=== PATIENT | male | born 1980 | race Caucasian/White ===

== ENCOUNTER 2020-03-18 20:24 | Inpatient (IN) | payer MEDICARE ==
[~2020-03-18] VITALS: Ht 200.7 cm; Wt 226.8 kg
[2020-03-18 21:54] LABS: BASOPHILS 0.3 % (0-2); EOSINOPHILS 0.7 % (0-7); HEMOGLOBIN 13.1 g/dL (13.5-17.5); IMMATURE GRANULOCYTES 0.3 % (0-5); MCH 31.3 pg (26.0-34.0); MCHC 29.8 g/dL (31.0-37.0); MEAN PLATELET VOLUME 9.9 fL (7.4-10.4); MONOCYTES 6.6 % (2-11); NEUTROPHILS 78.1 % (40-80); PLATELET COUNT 256 10x3/uL (130-400); RBC 4.19 10x6/uL (4.20-6.10); RDW 19.6 % (11.5-14.5); WBC 11.2 10x3/uL (4.8-10.8)
[2020-03-18 22:03] LABS: ANION GAP 12.2 mmol/L (8-16); CALCIUM 8.9 mg/dL (8.5-10.1); CARBON DIOXIDE 30.4 mmol/L (21.0-32.0); CREATININE - SERUM 1.2 mg/dL (0.6-1.3); POTASSIUM - SERUM 3.6 mmol/L (3.5-5.1)
[2020-03-18 22:15] VITALS: BP 141/78
[2020-03-18 22:16] LABS: ALBUMIN 3.2 g/dL (3.4-5.0); BILIRUBIN - TOTAL 0.82 mg/dL (0.2-1.3)
--- NOTE | 2020-03-18 23:30 | NUR ---
URINE OUTPUT: (ORIGINAL OUTPUT WITH INSERTION 750ML, CLEAR CHRISTIN) URINE OUTPUT (AFTER LASIX): 1725ML, CLEAR, PALE YELLOW
[2020-03-19 00:30] VITALS: BP 137/69
--- NOTE | 2020-03-19 00:50 | NUR ---
URINE OUTPUT VIA SANDOVAL: 1700ML CLEAR, VERY PALE
--- NOTE | 2020-03-19 02:00 | NUR ---
1500 ML OF PALE YELLOW URINE DRAINED FROM SANDOVAL BAG AT THIS TIME.
[2020-03-19] MEDS ORDERED: HYDROCODON-ACE1 EA10 PO (02:28)
[2020-03-19] MEDS ORDERED: XANAX XR2 MG PO (02:29)
[2020-03-19] MEDS ORDERED: METOPROLOL TART50 MG PO (02:31)
[2020-03-19 02:32] VITALS: BP 113/65; BMI 56.4
--- NOTE | 2020-03-19 04:02 | NUR ---
ASSESSED AT THE TIME OF ADMIT. PT IS ALERT AND ORIENTED, ABLE TO VERBALIZE NEEDS. IS AT THE BEDSIDE. MADE COMFORTABLE WITH SPECIAL BED DUE TO PT'S SIZE. ALL PAPER WORK DONE AND THEN PT REQUESTED PAIN MEDS WHICH WERE GIVEN ORDERED. BOTH FEET AND LOWER LEGS ARE RED AND SWOLLEN. HE HAS A SANDOVAL CATH.
--- NOTE | 2020-03-19 08:00 | NUR ---
RESTING IN BED, NO DISTRESS NOTED, FAMILY IN ROOM, SANDOVAL TO GRAVITY, SL IN PLACE, MONITOR LEGS, AND TELE
[2020-03-19 10:26] VITALS: BP 116/54
[2020-03-19 11:00] VITALS: BP 111/60
--- NOTE | 2020-03-19 12:06 | NUR ---
MEDICATED FOR BACK PAIN AND C/O INDIGESTION, CONT TO MONITOR
[2020-03-19 17:35] VITALS: BP 121/68
[2020-03-19 22:21] VITALS: BP 124/65
[2020-03-20 01:07] VITALS: BP 141/83
[2020-03-20 06:14] LABS: BASOPHILS 0.3 % (0-2); EOSINOPHILS 1.7 % (0-7); HEMOGLOBIN 12.9 g/dL (13.5-17.5); IMMATURE GRANULOCYTES 0.3 % (0-5); LYMPHOCYTES 16.7 % (15-50); MCH 31.2 pg (26.0-34.0); MCHC 29.3 g/dL (31.0-37.0); MCV 106.5 fL (80.0-100.0); MONOCYTES 8.7 % (2-11); NEUTROPHILS 72.3 % (40-80); PLATELET COUNT 302 10x3/uL (130-400); RBC 4.13 10x6/uL (4.20-6.10); RDW 19.7 % (11.5-14.5); WBC 10.3 10x3/uL (4.8-10.8)
[2020-03-20 06:49] VITALS: BP 119/52
[2020-03-20 07:03] LABS: ANION GAP 9.2 mmol/L (8-16); CARBON DIOXIDE 36.6 mmol/L (21.0-32.0); CREATININE - SERUM 1.2 mg/dL (0.6-1.3); PHOSPHOROUS 5.3 mg/dL (2.5-4.9); POTASSIUM - SERUM 3.8 mmol/L (3.5-5.1)
[2020-03-20 09:03] VITALS: BP 123/70
--- NOTE | 2020-03-20 10:16 | NUR ---
PT ALERT X 4. BREATH SOUNDS CLEAR BILAT 6L O2 PER NC. TELEMETRY IN PLACE. IV TO RIGHT AC, SALINE LOCKED. PT REPORTING PAIN OF 6/10, MEDICATED PER ORDERS, PT INSISTS ORAL PAIN MEDS WILL NOT HELP AFTER TAKING, WILL CONTINUE TO MONITOR. AT BEDSIDE. BED LOW, CALL LIGHT IN REACH. NO OTHER NEEDS AT THIS TIME.
[2020-03-20 12:53] VITALS: BP 117/58
[2020-03-20 17:31] VITALS: BP 139/73
--- NOTE | 2020-03-20 21:30 | NUR ---
WATCHING TV QUEITLY WITH NO COMPLAITNS VOICED. CONTINUES TO HAVE EDEMA TO LOWER EXTREIITIES.SANDOVAL PATENT AND DRAINING STRAW URINE NOTED. SL TO RFA INTACT WITHOUT REDNESS OR EDEMA NOTED. CL IN REACH
[2020-03-21 03:24] VITALS: BP 109/77
--- NOTE | 2020-03-21 05:11 | NUR ---
I have reviewed this patient and I concur with the Shift Assessment completed by the Licensed Practical Nurse today this shift.
[2020-03-21 06:40] VITALS: BP 120/65
[2020-03-21 07:03] LABS: BASOPHILS 0.1 % (0-2); EOSINOPHILS 0.9 % (0-7); HEMATOCRIT 43.3 % (42.0-54.0); HEMOGLOBIN 12.5 g/dL (13.5-17.5); IMMATURE GRANULOCYTES 0.2 % (0-5); LYMPHOCYTES 8.2 % (15-50); MCH 31.2 pg (26.0-34.0); MCHC 28.9 g/dL (31.0-37.0); MEAN PLATELET VOLUME 10.1 fL (7.4-10.4); MONOCYTES 6.7 % (2-11); NEUTROPHILS 83.9 % (40-80); PLATELET COUNT 286 10x3/uL (130-400); RBC 4.01 10x6/uL (4.20-6.10); RDW 19.2 % (11.5-14.5); WBC 11.6 10x3/uL (4.8-10.8)
[2020-03-21 07:11] LABS: ANION GAP 6.2 mmol/L (8-16); CALCIUM 7.9 mg/dL (8.5-10.1); CREATININE - SERUM 1.4 mg/dL (0.6-1.3); POTASSIUM - SERUM 3.8 mmol/L (3.5-5.1)
[2020-03-21 07:26] LABS: CARBON DIOXIDE 40.6 mmol/L (21.0-32.0)
[2020-03-21 09:22] VITALS: BP 131/75
--- NOTE | 2020-03-21 10:46 | NUR ---
PT SITTING UP IN BED ADMINISTERED SCHEDULED MEDICATIONS, PT INQUIRED ON PAIN MEDICATIONS AND TOLD PT HE CAN HAVE ORAL PAIN MEDS NOW IF HE WISHES. PT STATED HE PREFERS THE IV PAIN MEDICATION IT SEEMS TO WORK BETTER. EXPLAINED PT STILL HAS ANOTHER 2 HOURS. NO NEEDS AT THIS TIME. CONTINUE WITH PLAN OF CARE
[2020-03-21 13:05] VITALS: BP 115/74
[2020-03-21 17:54] VITALS: BP 126/75
--- NOTE | 2020-03-21 18:45 | NUR ---
I have reviewed this patient and I concur with the Shift Assessment completed by the Licensed Practical Nurse today this shift.
--- NOTE | 2020-03-21 19:49 | NUR ---
alert and orented able to voice needs and wants to staff. at bedside. IV to right upper arm. folley cath in place and paten. telemctry in place. no needs stated or noted at this time.
[2020-03-21 20:00] VITALS: BP 123/74
[2020-03-22] VITALS: BP 106/55
[2020-03-22 04:00] VITALS: BP 93/41
[2020-03-22 08:55] VITALS: BP 115/59
[2020-03-22 13:19] VITALS: BP 134/55
[2020-03-22 13:28] VITALS: Ht 200.7 cm; Wt 226.8 kg
--- NOTE | 2020-03-22 15:18 | NUR ---
OT NOTE: PT COMPLETED SUPINE TO SIT WITH MIN/MOD A. PT COMPLETED SIDE ROLLING WITH MIN A. PT COMPLETE SIT TO STAND WITH MIN A. PT REQUIRED CGA FOR STANDING BALANCE. PT COMPLETED UE AROM AXS TOLERATED. [phone] THANK YOU,CINDY VERDUZCO
[2020-03-22 17:06] VITALS: BP 103/58
--- NOTE | 2020-03-22 18:45 | NUR ---
I have reviewed this patient and I concur with the Shift Assessment completed by the Licensed Practical Nurse today this shift.
--- NOTE | 2020-03-22 18:45 | NUR ---
I have reviewed this patient and I concur with the Shift Assessment completed by the Licensed Practical Nurse today this shift.
--- NOTE | 2020-03-22 19:51 | NUR ---
ALERT AND ORENTED X4 WITH AT BEDSIDE. O2 AT 6 LETERS VIA HIGH FLOW N/C. MARGOT LIU IN PLACE AND JOSELIN.ISAIAH IN PLACE. CALL LIGHT AND WATER IN REACH.
[2020-03-22 20:00] VITALS: BP 136/73
[2020-03-23] VITALS: BP 138/67
[2020-03-23 04:00] VITALS: BP 117/63
[2020-03-23 04:58] LABS: BASOPHILS 0.2 % (0-2); EOSINOPHILS 1.6 % (0-7); HEMOGLOBIN 12.5 g/dL (13.5-17.5); IMMATURE GRANULOCYTES 0.2 % (0-5); LYMPHOCYTES 10.4 % (15-50); MCH 30.6 pg (26.0-34.0); MCHC 28.4 g/dL (31.0-37.0); MCV 107.8 fL (80.0-100.0); MEAN PLATELET VOLUME 11.2 fL (7.4-10.4); MONOCYTES 8.1 % (2-11); NEUTROPHILS 79.5 % (40-80); PLATELET COUNT 268 10x3/uL (130-400); RBC 4.08 10x6/uL (4.20-6.10); RDW 18.7 % (11.5-14.5); WBC 11.6 10x3/uL (4.8-10.8)
[2020-03-23 05:14] LABS: CALCIUM 8.4 mg/dL (8.5-10.1); CHLORIDE - SERUM 96 mmol/L (98-107); GLUCOSE 107 mg/dL (74-106); POTASSIUM - SERUM 3.7 mmol/L (3.5-5.1); SODIUM 138 mmol/L (136-145)
[2020-03-23 06:06] LABS: CALC OSMOLALITY 274 mosm/kg (275-300); UREA NITROGEN 11 mg/dL (7-18); eGFR NON AFRICAN AMERICAN 89 mL/min (90-120)
[2020-03-23 06:07] LABS: CARBON DIOXIDE 41.8 mmol/L (21.0-32.0)
--- NOTE | 2020-03-23 06:34 | NUR ---
CARBON BERTOXEN 41.8 CALLED TO SATELLITE PROJECT SITE MONITOR ALVIN PETTY ELECTRO MECHANICAL TECHNOLOGIST NO NEW ORDERS AT THIS TIME.
[2020-03-23 09:36] VITALS: BP 126/82
--- NOTE | 2020-03-23 16:13 | NUR ---
OT NOTE: PT SEEN BEFORE LUNCH TODAY. REPORTS THAT HE WOULD LIKE TO TRY TO GET TO BATHROOM HE FEELS LIKE HE MAY BE ABLE TO HAVE A BM ON TOILET (WAS NOT SUCCESSFUL ON BEDPAN)..ASSISTED PT WITH R LE MGMT TO GET FEET OFF OF EOB. MAX ASSIST FOR SUPINE TO SIT. EOB SITTING BALANCE WAS GOOD. C/O SEVERE PAIN IN B FEET BEFORE STANDING. PEROFRMED SIT TO STAND WITH BARIATRIC WALKER AND MOD ASSIST.. PT EXPRESSING PAIN OF 8/10 IN FEET WHILE IN WT BEARING POSITION. ATTEMPTED TO TAKE A STEP FORWARD BUT PT WAS UNABLE TO DO SO BECAUSE OF PAIN. PT ENCOURAGED TO TAKE A FEW SIDE STEPS AT EOB WHICH HE WAS ABLE TO PERFORM. BACK TO BED WITH MAX ASSIST FOR SIT TO SUPINE. POSITIONED B LES IN ELEVATED POSITION WITH USE OF BED AND MULT PILLOWS/BLANKETS.. PT TOLERATED FOR APPROX 1.5 HRS BEFORE BECOMING UNCOMFORTABLE. EDUCATED PT ON ANKLE PUMPS AND KNEE FLEX/EXT EXS WHILE IN BED TO ASSIST WITH EDEMA VIRGEN SHABAZZ, OTR/L [phone]
--- NOTE | 2020-03-23 16:19 | NUR ---
OT NOTE: PT REQUIRED TOTAL A WITH LE POSITIONING TO DECREASE RISK OF SKIN BREAKDOWN AND DECREASE EDEMA. PT REQUIRED MAX A WITH BED MOB TASKS. PT STATED HIS LE ARE PAINFUL. PT COMPLETED BUE AROM WITH FUNCTIONAL BED MOB TASKS. [phone] THANK YOU,CINDY VERDUZCO
--- NOTE | 2020-03-23 18:01 | NUR ---
I have reviewed this patient and I concur with the Shift Assessment completed by the Licensed Practical Nurse today this shift.
[2020-03-23 18:21] VITALS: BP 116/72
[2020-03-23 20:00] VITALS: BP 127/62
[2020-03-24] VITALS (7 sets, daily range): BP systolic 104–150; BP diastolic 54–80
[2020-03-24 06:27] LABS: BASOPHILS 0.5 % (0-2); HEMATOCRIT 42.4 % (42.0-54.0); HEMOGLOBIN 12.1 g/dL (13.5-17.5); IMMATURE GRANULOCYTES 0.2 % (0-5); LYMPHOCYTES 11.2 % (15-50); MCH 30.5 pg (26.0-34.0); MCHC 28.5 g/dL (31.0-37.0); MCV 106.8 fL (80.0-100.0); MEAN PLATELET VOLUME 10.2 fL (7.4-10.4); NEUTROPHILS 77.1 % (40-80); PLATELET COUNT 267 10x3/uL (130-400); RBC 3.97 10x6/uL (4.20-6.10); RDW 18.6 % (11.5-14.5); WBC 9.3 10x3/uL (4.8-10.8)
[2020-03-24 06:46] LABS: CALC OSMOLALITY 278 mosm/kg (275-300); CALCIUM 8.5 mg/dL (8.5-10.1); CHLORIDE - SERUM 98 mmol/L (98-107); GLUCOSE 115 mg/dL (74-106); POTASSIUM - SERUM 3.7 mmol/L (3.5-5.1); SODIUM 139 mmol/L (136-145); UREA NITROGEN 13 mg/dL (7-18); eGFR NON AFRICAN AMERICAN 89 mL/min (90-120)
[2020-03-24 07:13] LABS: CARBON DIOXIDE 43.7 mmol/L (21.0-32.0)
--- NOTE | 2020-03-24 10:52 | NUR ---
I have reviewed this patient and I concur with the Shift Assessment completed by the Licensed Practical Nurse today this shift.
--- NOTE | 2020-03-24 11:43 | MORECARE ---
CASE MANAGEMENT DISCHARGE SUMMARY PATIENT: VALENCIA BENNETT UNIT: [id number] ADM DATE: 03/19/20 AGE: 39 : 82 SEX: M ROOM/BED: D.2204 AUTHOR: JHONY MARK PHYSICIAN: REFERRING PHYSICIAN: EMILY ANDREW MD DATE OF SERVICE: 03/24/20 Discharge Plan Patient Name: VALENCIA BENNETT Facility: [facility]:[place] : 1980 Planned Disposition: Home Anticipated Discharge Date: Discharge Date: Expected LOS: Initial Reviewer: [email or web address] Initial Review Date: 03/19/2020 Generated: 03/24/20 12:43 pm Patient Name: VALENCIA BENNETT Page [phone] at 1143 All edits/amendments must be made on the electronic document DICTATION DATE: 03/24/20 1143 FORMATION FRACTURING OPERATOR: CHRIS 03/24/20 1143 RPT#: [id number] DC DATE: STATUS: ADM IN [facility] [address] [place] [address] END OF REPORT
--- NOTE | 2020-03-24 11:52 | MORECARE ---
CASE MANAGEMENT DISCHARGE SUMMARY PATIENT: VALENCIA BENNETT UNIT: [id number] ADM DATE: 03/19/20 AGE: 39 : 84 SEX: M ROOM/BED: D.2204 AUTHOR: JHONY MARK PHYSICIAN: REFERRING PHYSICIAN: EMILY ANDREW MD DATE OF SERVICE: 03/24/20 Discharge Plan Patient Name: VALENCIA BENNETT [facility] [facility] 1980 Planned Disposition: Home Anticipated Discharge Date: Discharge Date: Expected LOS: Initial Reviewer: [email or web address] Initial Review Date: 03/19/2020 Generated: 03/24/20 12:52 pm DCPIA - Discharge Planning Initial Assessment Updated by [email or web address]: Nory Ellis on 03/24/20 11:47 am * Is the patient Alert and Oriented? Yes * How many steps to enter\exit or inside your home? stairs * PCP DR SHIN IN [facility] [place] WOULD LIKE TO USE [facility] * Pharmacy [address] * Preadmission Environment Home with Family * ADLs Partial Dependent * Partial ADLs (Assistance needed) Ambulation Bathing * Equipment Cane * Other Equipment WHEELCHAIR HAS BEEN ORDERED * List name and contact numbers for known caregivers / representatives who currently or will assist patient after discharge: SIGIFREDO BENNETT [phone] * Verbal permission to speak to the caregivers and representatives has been obtained from the patient. Yes * Community resources currently utilized None * Additional services required to return to the preadmission environment? Yes * Can the patient safely return to the preadmission environment? Yes * Has this patient been hospitalized within the prior 30 days at any hospital? No Last DP export: 03/24/20 10:43 a Patient Name: VALENCIA BENNETT Page 68043 at 1152 All edits/amendments must be made on the electronic document DICTATION DATE: 03/24/20 1152 AIR AND WATER TESTER: CHRIS 03/24/20 1152 RPT#: [id number] DC DATE: STATUS: ADM IN [facility] [address] [place] [address] END OF REPORT
--- NOTE | 2020-03-24 12:01 | MORECARE ---
CASE MANAGEMENT DISCHARGE SUMMARY PATIENT: VALENCIA BENNETT UNIT: [id number] ADM DATE: 03/19/20 AGE: 39 : 84 SEX: M ROOM/BED: D.2204 AUTHOR: JHONY MARK PHYSICIAN: REFERRING PHYSICIAN: EMILY ANDREW MD DATE OF SERVICE: 03/24/20 Discharge Plan Patient Name: VALENCIA BENNETT Facility: [facility]:[place] : 1980 Planned Disposition: Home Anticipated Discharge Date: Discharge Date: Expected LOS: Initial Reviewer: [email or web address] Initial Review Date: 03/19/2020 Generated: 03/24/20 1:00 pm Comments DCP- Discharge Planning Updated by [email or web address]: Nory Ellis on 03/24/20 10:[address] Patient Name: VALENCIA BENNETT Admission Status: ER Accout number: [id number] Admission Date: 03-19-2020 : 1980 Admission Diagnosis:FLUID OVERLOAD, UNSPECIFIED Attending: EMILY ANDREW Current LOS: 5 Anticipated DC Date: Planned Disposition: Home Primary Insurance: MEDICARE A & B Discharge Planning Comments: CM met with patient to complete initial dc planning assessment. CM educated patient on the CM role and verbal consent given by patient to complete assessment. Patient lives at home with his where he is moderately independent. He states that he needs help getting up then he is good to go. His is at his bedside. He see a Dr in [place] and he has ordered him a [facility] and per the patient it should be delivered soon. At discharge patient plans to return home and feels this is a safe discharge. He knows that he needs therapy and is asking about water therapy. He states his feet is killing him and the pain is a lot. He has agoraphobia so he is scared about being around crowds ( like an inpatient rehab) CM discussed availability of home health, rehab services, and medical equipment. He has a cane, but it is not helpful. His said he did much better with the walker. IMM signed and went over. DMITRIY also signed for HH vs OP water therapy. Patient denied known discharge needs at this time. CM will continue to follow and will assist as needed with dc plans/needs. Parliamentary Archivist: Nory Ellis DCPIA - Discharge Planning Initial Assessment Updated by [email or web address]: Nory Ellis on 03/24/20 11:47 am * Is the patient Alert and Oriented? Yes * How many steps to enter\exit or inside your home? stairs * PCP [facility] SHIN IN [facility] WOULD LIKE TO USE [facility] * Pharmacy [address] * Preadmission Environment Home with Family * ADLs Partial Dependent * Partial ADLs (Assistance needed) Ambulation Bathing * Equipment Cane * Other Equipment WHEELCHAIR HAS BEEN ORDERED * List name and contact numbers for known caregivers / representatives who currently or will assist patient after discharge: SIGIFREDO BENNETT [phone] * Verbal permission to speak to the caregivers and representatives has been obtained from the patient. Yes * Community resources currently utilized None * Additional services required to return to the preadmission environment? Yes * Can the patient safely return to the preadmission environment? Yes * Has this patient been hospitalized within the prior 30 days at any hospital? No Coverage Notice Reviewer: [id number] Jeremy Ellis Notice Issued Date-Time: 03/24/2020 10:35 Notice Type: IM Discharge Notice Notice Delivered To: Patient Relationship to Patient: Activity Therapy Specialist Name: Delivery Method: HAND - Hand Delivered Samaria Days: Prior Verbal Notification: Recipient Understood Notice: Yes Recipient Signature: Yes Med Rec Note Co-signed by Attending: Coverage Notice Comment: Reviewer: [email or web address] Jeremy Ellis Notice Issued Date-Time: 03/24/2020 10:35 Notice Type: Patient Choice Letter Notice Delivered To: Patient Relationship to Patient: Activity Therapy Specialist Name: Delivery Method: HAND - Hand Delivered Samaria Days: Prior Verbal Notification: Recipient Understood Notice: Yes Recipient Signature: Yes Med Rec Note Co-signed by Attending: Coverage Notice Comment: dmitriy hh vs water therapy Last DP export: 03/24/20 10:52 a Patient Name: VALENCIA BENNETT Page [phone] at 1201 All edits/amendments must be made on the electronic document DICTATION DATE: 03/24/20 1201 LINEMARKER: CHRIS 03/24/20 1201 RPT#: [id number] DC DATE: STATUS: ADM IN [facility] [address] [facility] [place] [address] END OF REPORT
--- NOTE | 2020-03-24 12:35 | NUR ---
Nutrition follow-up: Visited with pts ; pt asleep. Pts reports pt with good appetite; reports very sleepy with increased gabapentin. Labs reviewed Diet: Low sodium PO intake ~75% of meals Wt: 500# No BM charted; may need to add stool softener RDN following.
--- NOTE | 2020-03-24 14:10 | MORECARE ---
CASE MANAGEMENT DISCHARGE SUMMARY PATIENT: VALENCIA BENNETT UNIT: [id number] ADM DATE: 03/19/20 AGE: 39 : 84 SEX: M ROOM/BED: D.2204 AUTHOR: JHONY MARK PHYSICIAN: REFERRING PHYSICIAN: EMILY ANDREW MD DATE OF SERVICE: 03/24/20 Discharge Plan Patient Name: VALENCIA BENNETT Facility: [facility]:[place] : 1980 Planned Disposition: Home Anticipated Discharge Date: Discharge Date: Expected LOS: Initial Reviewer: [email or web address] Initial Review Date: 03/19/2020 Generated: 03/24/20 3:09 pm Comments DCP- Discharge Planning Updated by [email or web address]: Nory Ellis on 03/24/20 10:[address] Patient Name: VALENCIA BENNETT Admission Status: ER Accout number: [id number] Admission Date: 03-19-2020 : 1980 Admission Diagnosis:FLUID OVERLOAD, UNSPECIFIED Attending: EMILY ANDREW Current LOS: 5 Anticipated DC Date: Planned Disposition: Home Primary Insurance: MEDICARE A & B Discharge Planning Comments: CM met with patient to complete initial dc planning assessment. CM educated patient on the CM role and verbal consent given by patient to complete assessment. Patient lives at home with his where he is moderately independent. He states that he needs help getting up then he is good to go. His is at his bedside. He see a Dr in [place] and he has ordered him a wheelchair through [facility] and per the patient it should be delivered soon. At discharge patient plans to return home and feels this is a safe discharge. He knows that he needs therapy and is asking about water therapy. He states his feet is killing him and the pain is a lot. He has agoraphobia so he is scared about being around crowds ( like an inpatient rehab) CM discussed availability of home health, rehab services, and medical equipment. He has a cane, but it is not helpful. His said he did much better with the walker. IMM signed and went over. MDITRIY also signed for HH vs OP water therapy. Patient denied known discharge needs at this time. CM will continue to follow and will assist as needed with dc plans/needs. Braid Pattern Setter: Nory Ellis DCPIA - Discharge Planning Initial Assessment Updated by [email or web address]: Nory Ellis on 03/24/20 11:47 am * Is the patient Alert and Oriented? Yes * How many steps to enter\exit or inside your home? stairs * PCP [facility] SHIN IN [facility] WOULD LIKE TO USE [facility] * Pharmacy [address] * Preadmission Environment Home with Family * ADLs Partial Dependent * Partial ADLs (Assistance needed) Ambulation Bathing * Equipment Cane * Other Equipment WHEELCHAIR HAS BEEN ORDERED * List name and contact numbers for known caregivers / representatives who currently or will assist patient after discharge: SIGIFREDO BENNETT [phone] * Verbal permission to speak to the caregivers and representatives has been obtained from the patient. Yes * Community resources currently utilized None * Additional services required to return to the preadmission environment? Yes * Can the patient safely return to the preadmission environment? Yes * Has this patient been hospitalized within the prior 30 days at any hospital? No Coverage Notice Reviewer: [email or web address] Jeremy Ellis Notice Issued Date-Time: 03/24/2020 10:35 Notice Type: IM Discharge Notice Notice Delivered To: Patient Relationship to Patient: Coupon Clerk Name: Delivery Method: HAND - Hand Delivered Samaria Days: Prior Verbal Notification: Recipient Understood Notice: Yes Recipient Signature: Yes Med Rec Note Co-signed by Attending: Coverage Notice Comment: Reviewer: [email or web address] Jeremy Ellis Notice Issued Date-Time: 03/24/2020 10:35 Notice Type: Patient Choice Letter Notice Delivered To: Patient Relationship to Patient: Coupon Clerk Name: Delivery Method: HAND - Hand Delivered Samaria Days: Prior Verbal Notification: Recipient Understood Notice: Yes Recipient Signature: Yes Med Rec Note Co-signed by Attending: Coverage Notice Comment: dmitriy hh vs water therapy Last DP export: 03/24/20 11:01 a Patient Name: VALENCIA BENNETT Page [id number] at 1410 All edits/amendments must be made on the electronic document DICTATION DATE: 03/24/201408 YOKE PRESSER: CHRIS 03/24/20 140 RPT#: [id number] DC DATE: STATUS: ADM IN [facility] [address] [place] [address] END OF REPORT
--- NOTE | 2020-03-24 16:50 | NUR ---
OT NOTE: PT COMPLETED SUPINE TO SIT WITH MAX A. PT COMPLETED SIT TO STAND WITH MAX A. PT COMPLETED ADL MOB WITH RW REQUIRED CGA. PT COMPLETED TOILETING WITH SBA. PT REQUIRED TOTAL A WITH TOILETING HYGIENE TASKS. PT REQUIRED TOTAL A WITH POSITIONING IN BED TO DECREASE LE EDEMA. [phone] THANK YOU,CINDY VERDUZCO
[2020-03-25 04:00] VITALS: BP 126/71
--- NOTE | 2020-03-25 07:15 | NUR ---
REC'D IN BED AWAKE AND ALERT. RESP EVEN AND UNLABORED WITH NO DISTRESS NOTED. CAN EXPRESS NEED AND WANTS. NO C/O NOTED OR VOICED. ASSESSMENT COMPLETED. C/L AND AT BEDSIDE.
[2020-03-25 09:07] VITALS: BP 138/60
[2020-03-25] MEDS ORDERED: NEURONTIN 300300 MG PO (10:24)
[2020-03-25] MEDS ORDERED: LASIX40 MG PO (10:27)
--- NOTE | 2020-03-25 10:49 | NUR ---
WAS MEDICATED WITH [facility] AT THIS TIME FOR C/O GENERALIZED PAIN. C/L IN REACH AT BEDSIDE.
--- NOTE | 2020-03-25 11:57 | NUR ---
PT AND FRIEND IN ROOM. CONCERNED ABOUT GOING HOME TODAY. SPOKE WITH Aman JOHNSTON LPN AND RODO NOBLES CASEMANAGER ABOUT THIS. STATES ANXIETY REASON FOR STAYING AND THAT HE SHOULD HAVE BEEN TOLD YESTERDAY THAT IT WAS A POSSIBILITY THAT HE WAS GOING HOME TODAY. CL IN REACH. WCTM
[2020-03-25 12:31] VITALS: BP 116/52
--- NOTE | 2020-03-25 12:59 | MORECARE ---
CASE MANAGEMENT DISCHARGE SUMMARY PATIENT: VALENCIA BENNETT UNIT: [id number] ADM DATE: 03/19/20 AGE: 39 : 84 SEX: M ROOM/BED: D.2204 AUTHOR: DEEDEEDOC PHYSICIAN: REFERRING PHYSICIAN: EMILY ANDREW MD DATE OF SERVICE: 03/25/20 Discharge Plan Patient Name: VALENCIA BENNETT Facility: [facility]:[place] : 1980 Planned Disposition: Home Anticipated Discharge Date: Discharge Date: Expected LOS: Initial Reviewer: [email or web address] Initial Review Date: 03/19/2020 Generated: 03/25/20 1:58 pm Comments DCP- Discharge Planning Updated by [email or web address]: Nory Ellis on 03/25/20 11:[address] DISCHARGE IS ON HOLD TILL THE PATIENT SPEAKS WITH DR HOWARD DCP- Discharge Planning Updated by [email or web address]: Nory Ellis on 03/24/20 10:[address] Patient Name: VALENCIA BENNETT Admission Status: ER Accout number: [id number] Admission Date: 03-19-2020 : 1980 Admission Diagnosis:FLUID OVERLOAD, UNSPECIFIED Attending: EMILY ANDREW Current LOS: 5 Anticipated DC Date: Planned Disposition: Home Primary Insurance: MEDICARE A & B Discharge Planning Comments: CM met with patient to complete initial dc planning assessment. CM educated patient on the CM role and verbal consent given by patient to complete assessment. Patient lives at home with his where he is moderately independent. He states that he needs help getting up then he is good to go. His is at his bedside. He see a Dr in [place] and he has [facility] him [facility] and per the patient it should be delivered soon. At discharge patient plans to return home and feels this is a safe discharge. He knows that he needs therapy and is asking about water therapy. He states his feet is killing him and the pain is a lot. He has agoraphobia so he is scared about being around crowds ( like an inpatient rehab) CM discussed availability of home health, rehab services, and medical equipment. He has a cane, but it is not helpful. His said he did much better with the walker. IMM signed and went over. DMITRIY also signed for HH vs OP water therapy. Patient denied known discharge needs at this time. CM will continue to follow and will assist as needed with dc plans/needs. Briquette Maker: Nory Ellis DCPIA - Discharge Planning Initial Assessment Updated by [email or web address]: Nory Ellis on 03/24/20 11:47 am * Is the patient Alert and Oriented? Yes * How many steps to enter\exit or inside your home? stairs * PCP [facility] SHIN IN [facility] WOULD LIKE TO USE [facility] * Pharmacy [address] * Preadmission Environment Home with Family * ADLs Partial Dependent * Partial ADLs (Assistance needed) Ambulation Bathing * Equipment Cane * Other Equipment WHEELCHAIR HAS BEEN ORDERED * List name and contact numbers for known caregivers / representatives who currently or will assist patient after discharge: SIGIFREDO BENNETT [phone] * Verbal permission to speak to the caregivers and representatives has been obtained from the patient. Yes * Community resources currently utilized None * Additional services required to return to the preadmission environment? Yes * Can the patient safely return to the preadmission environment? Yes * Has this patient been hospitalized within the prior 30 days at any hospital? No Coverage Notice Reviewer: [id number] Jeremy Ellis Notice Issued Date-Time: 03/24/2020 10:35 Notice Type: IM Discharge Notice Notice Delivered To: Patient Relationship to Patient: Third Helper Name: Delivery Method: HAND - Hand Delivered Samaria Days: Prior Verbal Notification: Recipient Understood Notice: Yes Recipient Signature: Yes Med Rec Note Co-signed by Attending: Coverage Notice Comment: Reviewer: [email or web address] Jeremy Ellis Notice Issued Date-Time: 03/24/2020 10:35 Notice Type: Patient Choice Letter Notice Delivered To: Patient Relationship to Patient: Third Helper Name: Delivery Method: HAND - Hand Delivered Samaria Days: Prior Verbal Notification: Recipient Understood Notice: Yes Recipient Signature: Yes Med Rec Note Co-signed by Attending: Coverage Notice Comment: dmitriy hh vs water therapy Last DP export: 03/24/20 1:10 p Patient Name: VALENCIA BENNETT Page [id number] at 1259 All edits/amendments must be made on the electronic document DICTATION DATE: 03/25/201257 DEAN FOR STUDENT AFFAIRS: CHRIS 03/25/201257 RPT#: [id number] DC DATE: STATUS: ADM IN [facility] [address] [place] [address] END OF REPORT
--- NOTE | 2020-03-25 14:17 | MORECARE ---
CASE MANAGEMENT DISCHARGE SUMMARY PATIENT: VALENCIA BENNETT UNIT: [id number] ADM DATE: 03/19/20 AGE: 39 : 84 SEX: M ROOM/BED: D.2204 AUTHOR: DEEDEEDOC PHYSICIAN: REFERRING PHYSICIAN: EMILY ANDREW MD DATE OF SERVICE: 03/25/20 Discharge Plan Patient Name: VALENCIA BENNETT Facility: [facility]:[place] : 1980 Planned Disposition: Home Anticipated Discharge Date: Discharge Date: Expected LOS: Initial Reviewer: [email or web address] Initial Review Date: 03/19/2020 Generated: 03/25/20 3:16 pm Comments DCP- Discharge Planning Updated by [email or web address]: Nory Ellis on 03/25/20 1:[address] At this time patient needs O2. I have faxed the paperwork over to [facility] for O2 DCP- Discharge Planning Updated by [id number]: Nory Ellis on 03/25/20 11:[address] DISCHARGE IS ON HOLD TILL THE PATIENT SPEAKS WITH DR HOWARD DCP- Discharge Planning Updated by [email or web address]: Nory Ellis on 03/24/20 10:[address] Patient Name: VALENCIA BENNETT Admission Status: ER Accout number: [id number] Admission Date: 03-19-2020 : 1980 Admission Diagnosis:FLUID OVERLOAD, UNSPECIFIED Attending: EMILY ANDREW Current LOS: 5 Anticipated DC Date: Planned Disposition: Home Primary Insurance: MEDICARE A & B Discharge Planning Comments: CM met with patient to complete initial dc planning assessment. CM educated patient on the CM role and verbal consent given by patient to complete assessment. Patient lives at home with his where he is moderately independent. He states that he needs help getting up then he is good to go. His is at his bedside. He see a Dr in [place] and he has ordered him a wheelchair through [facility] [place] and per the patient it should be delivered soon. At discharge patient plans to return home and feels this is a safe discharge. He knows that he needs therapy and is asking about water therapy. He states his feet is killing him and the pain is a lot. He has agoraphobia so he is scared about being around crowds ( like an inpatient rehab) CM discussed availability of home health, rehab services, and medical equipment. He has a cane, but it is not helpful. His said he did much better with the walker. IMM signed and went over. DMITRIY also signed for HH vs OP water therapy. Patient denied known discharge needs at this time. CM will continue to follow and will assist as needed with dc plans/needs. Vegetable Inspector: Nory Ellis DCPIA - Discharge Planning Initial Assessment Updated by [email or web address]: Nory Ellis on 03/24/20 11:47 am * Is the patient Alert and Oriented? Yes * How many steps to enter\exit or inside your home? stairs * PCP DR SHIN IN [facility] WOULD LIKE TO USE [facility] * Pharmacy [address] * Preadmission Environment Home with Family * ADLs Partial Dependent * Partial ADLs (Assistance needed) Ambulation Bathing * Equipment Cane * Other Equipment WHEELCHAIR HAS BEEN ORDERED * List name and contact numbers for known caregivers / representatives who currently or will assist patient after discharge: SIGIFREDO BENNETT [phone] * Verbal permission to speak to the caregivers and representatives has been obtained from the patient. Yes * Community resources currently utilized None * Additional services required to return to the preadmission environment? Yes * Can the patient safely return to the preadmission environment? Yes * Has this patient been hospitalized within the prior 30 days at any hospital? No External Providers External Provider: Jonah Next Contact Date: Service Request Date: Service Type: Resolution: Reviewer: Comments: Coverage Notice Reviewer: [id number] Jeremy Ellis Notice Issued Date-Time: 03/24/2020 10:35 Notice Type: IM Discharge Notice Notice Delivered To: Patient Relationship to Patient: Western Philosophy Professor Name: Delivery Method: HAND - Hand Delivered Samaria Days: Prior Verbal Notification: Recipient Understood Notice: Yes Recipient Signature: Yes Med Rec Note Co-signed by Attending: Coverage Notice Comment: Reviewer: [email or web address] Jeremy Ellis Notice Issued Date-Time: 03/24/2020 10:35 Notice Type: Patient Choice Letter Notice Delivered To: Patient Relationship to Patient: Western Philosophy Professor Name: Delivery Method: HAND - Hand Delivered Samaria Days: Prior Verbal Notification: Recipient Understood Notice: Yes Recipient Signature: Yes Med Rec Note Co-signed by Attending: Coverage Notice Comment: dmitriy hh vs water therapy Last DP export: 03/25/20 11:59 a Patient Name: VALENCIA BENNETT Page 45026 at 1417 All edits/amendments must be made on the electronic document DICTATION DATE: 03/25/201414 TRASH HAULER: CHRIS 03/25/201414 RPT#: [id number] DC DATE: STATUS: ADM IN [facility] [address] [place] [address] END OF REPORT
--- NOTE | 2020-03-25 15:08 | NUR ---
OT NOTE: PT COMPLETED SIT TO STAND WITH MOD A. PT COMPLETED ADL MOB WITH RW WITH CGA. PT REQUIRED MAX A TO STEVE/DOFF SHOES. PT IS PROGRESSING WELL. [phone] COLLEEN GRANADOS COTA
--- NOTE | 2020-03-25 15:38 | NUR ---
WAS MEDICATED AT THIS TIME WITH NORCO FOR C/O PAIN . C/L IN REACH AT BEDSIDE.
[2020-03-25 17:31] VITALS: BP 124/62
[2020-03-25 22:24] VITALS: BP 143/64
[2020-03-26 01:13] VITALS: BP 175/76
[2020-03-26 06:29] LABS: BASOPHILS 0.4 % (0-2); EOSINOPHILS 3.9 % (0-7); HEMATOCRIT 43.4 % (42.0-54.0); HEMOGLOBIN 12.4 g/dL (13.5-17.5); IMMATURE GRANULOCYTES 0.2 % (0-5); LYMPHOCYTES 15.3 % (15-50); MCH 30.4 pg (26.0-34.0); MCHC 28.6 g/dL (31.0-37.0); MCV 106.4 fL (80.0-100.0); MEAN PLATELET VOLUME 10.8 fL (7.4-10.4); MONOCYTES 6.8 % (2-11); NEUTROPHILS 73.4 % (40-80); PLATELET COUNT 304 10x3/uL (130-400); RBC 4.08 10x6/uL (4.20-6.10); RDW 18.9 % (11.5-14.5); WBC 8.5 10x3/uL (4.8-10.8)
[2020-03-26 06:55] LABS: CHLORIDE - SERUM 96 mmol/L (98-107); CREATININE - SERUM 0.8 mg/dL (0.6-1.3); GLUCOSE 110 mg/dL (74-106); POTASSIUM - SERUM 3.4 mmol/L (3.5-5.1); SODIUM 143 mmol/L (136-145); eGFR NON AFRICAN AMERICAN > 90 mL/min (90-120)
[2020-03-26 07:04] LABS: CALC OSMOLALITY 287 mosm/kg (275-300); CARBON DIOXIDE 45.7 mmol/L (21.0-32.0); UREA NITROGEN 17 mg/dL (7-18)
[2020-03-26 09:50] VITALS: BP 179/75
--- NOTE | 2020-03-26 12:30 | NUR ---
PATIENT UP WITH PHYSICAL THERAPY. BACK TO BED. WAITING ON LUNCH. DENIES PAIN OR NEEDS AT THIS TIME. BED LOW POSITION, CALL LIGHT IN REACH. WILL CONTINUE TO MONITOR.
[2020-03-26 16:00] VITALS: BP 125/49
[2020-03-26 21:14] VITALS: BP 113/47
[2020-03-27 01:21] VITALS: BP 114/68
[2020-03-27 06:11] LABS: BASOPHILS 0.4 % (0-2); EOSINOPHILS 4.2 % (0-7); HEMATOCRIT 43.2 % (42.0-54.0); HEMOGLOBIN 12.6 g/dL (13.5-17.5); IMMATURE GRANULOCYTES 0.1 % (0-5); LYMPHOCYTES 15.1 % (15-50); MCH 30.4 pg (26.0-34.0); MCHC 29.2 g/dL (31.0-37.0); MEAN PLATELET VOLUME 10.8 fL (7.4-10.4); MONOCYTES 7.3 % (2-11); NEUTROPHILS 72.9 % (40-80); PLATELET COUNT 313 10x3/uL (130-400); RBC 4.14 10x6/uL (4.20-6.10); WBC 10.3 10x3/uL (4.8-10.8)
[2020-03-27 06:12] LABS: MCV 104.3 fL (80.0-100.0)
[2020-03-27 06:17] VITALS: BP 128/65
[2020-03-27 06:18] LABS: CALC OSMOLALITY 281 mosm/kg (275-300); CALCIUM 9.2 mg/dL (8.5-10.1); CHLORIDE - SERUM 96 mmol/L (98-107); CREATININE - SERUM 0.9 mg/dL (0.6-1.3); GLUCOSE 95 mg/dL (74-106); POTASSIUM - SERUM 3.2 mmol/L (3.5-5.1); SODIUM 141 mmol/L (136-145); UREA NITROGEN 15 mg/dL (7-18); eGFR NON AFRICAN AMERICAN > 90 mL/min (90-120)
[2020-03-27 06:20] LABS: CARBON DIOXIDE 42.9 mmol/L (21.0-32.0)
[2020-03-27 08:00] VITALS: BP 131/60
--- NOTE | 2020-03-27 08:00 | NUR ---
RESTING IN BED WITH EYES CLOSED, FAMILY AT THE BEDSIDE. BREATHING EVEN AND NONLABORED, NO CURRENT S/S OF DISTRESS AT THIS TIME. IV LOCATED TO LEFT FOREARM CURRENTLY SL. WILL CONT TO MONITOR.
[2020-03-27 12:18] VITALS: BP 119/62
[2020-03-27 16:26] VITALS: BP 123/66
[2020-03-27 22:11] VITALS: BP 127/76
[2020-03-28 01:38] VITALS: BP 110/42
[2020-03-28 05:43] VITALS: BP 127/60
--- NOTE | 2020-03-28 06:46 | MORECARE ---
CASE MANAGEMENT DISCHARGE SUMMARY PATIENT: VALENCIA BENNETT UNIT: [id number] ADM DATE: 03/19/20 AGE: 39 : 84 SEX: M ROOM/BED: D.2204 AUTHOR: JHONY MARK PHYSICIAN: REFERRING PHYSICIAN: EMILY ANDREW MD DATE OF SERVICE: 03/28/20 Discharge Plan Patient Name: VALENCIA BENNETT Facility: [facility]:[place] : 1980 Planned Disposition: Home Anticipated Discharge Date: Discharge Date: Expected LOS: Initial Reviewer: [email or web address] Initial Review Date: 03/19/2020 Generated: 03/28/20 7:46 am Comments DCP- Discharge Planning Updated by [email or web address]: Nory Ellis on 03/28/20 5:[address] late entry 03/25/20 O2 was delivered to bedside on Saturday03/25/20 he qualified for O2. DCP- Discharge Planning Updated by [email or web address]: Nory Ellis on 03/25/20 1:[address] At this time patient needs O2. I have faxed the paperwork over to [facility] for O2 DCP- Discharge Planning Updated by [email or web address]: Nory Ellis on 03/25/20 11:[address] DISCHARGE IS ON HOLD TILL THE PATIENT SPEAKS WITH DR HOWARD DCP- Discharge Planning Updated by [email or web address]: Nory Ellis on 03/24/20 10:[address] Patient Name: VALENCIA BENNETT Admission Status: ER Accout number: [id number] Admission Date: 03-19-2020 : 1980 Admission Diagnosis:FLUID OVERLOAD, UNSPECIFIED Attending: EMILY ANDREW Current LOS: 5 Anticipated DC Date: Planned Disposition: Home Primary Insurance: MEDICARE A & B Discharge Planning Comments: CM met with patient to complete initial dc planning assessment. CM educated patient on the CM role and verbal consent given by patient to complete assessment. Patient lives at home with his where he is moderately independent. He states that he needs help getting up then he is good to go. His is at his bedside. He see a Dr in [place] and he has ordered him a wheelchair through [facility] and per the patient it should be delivered soon. At discharge patient plans to return home and feels this is a safe discharge. He knows that he needs therapy and is asking about water therapy. He states his feet is killing him and the pain is a lot. He has agoraphobia so he is scared about being around crowds ( like an inpatient rehab) CM discussed availability of home health, rehab services, and medical equipment. He has a cane, but it is not helpful. His said he did much better with the walker. IMM signed and went over. DMITRIY also signed for HH vs OP water therapy. Patient denied known discharge needs at this time. CM will continue to follow and will assist as needed with dc plans/needs. Type Inspector: Nory Ellis DCPIA - Discharge Planning Initial Assessment Updated by [email or web address]: Nory Ellis on 03/24/20 11:47 am * Is the patient Alert and Oriented? Yes * How many steps to enter\exit or inside your home? stairs * PCP DR SHIN IN [facility] WOULD LIKE TO USE [employer] * Pharmacy [address] * Preadmission Environment Home with Family * ADLs Partial Dependent * Partial ADLs (Assistance needed) Ambulation Bathing * Equipment Cane * Other Equipment WHEELCHAIR HAS BEEN ORDERED * List name and contact numbers for known caregivers / representatives who currently or will assist patient after discharge: SIGIFREDO BENNTET [phone] * Verbal permission to speak to the caregivers and representatives has been obtained from the patient. Yes * Community resources currently utilized None * Additional services required to return to the preadmission environment? Yes * Can the patient safely return to the preadmission environment? Yes * Has this patient been hospitalized within the prior 30 days at any hospital? No Coverage Notice Reviewer: [id number] Jeremy Ellis Notice Issued Date-Time: 03/24/2020 10:35 Notice Type: IM Discharge Notice Notice Delivered To: Patient Relationship to Patient: Dry Kiln Operator Name: Delivery Method: HAND - Hand Delivered Samaria Days: Prior Verbal Notification: Recipient Understood Notice: Yes Recipient Signature: Yes Med Rec Note Co-signed by Attending: Coverage Notice Comment: Reviewer: [id number] Jeremy Ellis Notice Issued Date-Time: 03/24/2020 10:35 Notice Type: Patient Choice Letter Notice Delivered To: Patient Relationship to Patient: Dry Kiln Operator Name: Delivery Method: HAND - Hand Delivered Samaria Days: Prior Verbal Notification: Recipient Understood Notice: Yes Recipient Signature: Yes Med Rec Note Co-signed by Attending: Coverage Notice Comment: dmitriy hh vs water therapy Last DP export: 03/25/20 1:17 p Patient Name: VALENCIA BENNETT Page [id number] at 0646 All edits/amendments must be made on the electronic document DICTATION DATE: 03/28/20645 NOVELTY PRINTING MACHINE OPERATOR: CHRIS 03/28/20645 RPT#: [id number] DC DATE: STATUS: ADM IN [facility] [address] [place] [address] END OF REPORT
[2020-03-28 08:51] LABS: BASOPHILS 0.8 % (0-2); EOSINOPHILS 3.8 % (0-7); HEMATOCRIT 42.5 % (42.0-54.0); HEMOGLOBIN 12.1 g/dL (13.5-17.5); IMMATURE GRANULOCYTES 0.3 % (0-5); LYMPHOCYTES 16.7 % (15-50); MCH 29.7 pg (26.0-34.0); MCHC 28.5 g/dL (31.0-37.0); MCV 104.4 fL (80.0-100.0); MEAN PLATELET VOLUME 10.7 fL (7.4-10.4); MONOCYTES 9.2 % (2-11); NEUTROPHILS 69.2 % (40-80); PLATELET COUNT 274 10x3/uL (130-400); RBC 4.07 10x6/uL (4.20-6.10); RDW 18.8 % (11.5-14.5)
[2020-03-28 09:00] LABS: CALC OSMOLALITY 282 mosm/kg (275-300); CALCIUM 8.6 mg/dL (8.5-10.1); CHLORIDE - SERUM 98 mmol/L (98-107); CREATININE - SERUM 0.9 mg/dL (0.6-1.3); GLUCOSE 87 mg/dL (74-106); POTASSIUM - SERUM 3.5 mmol/L (3.5-5.1); SODIUM 142 mmol/L (136-145); UREA NITROGEN 16 mg/dL (7-18); eGFR NON AFRICAN AMERICAN > 90 mL/min (90-120)
[2020-03-28 09:01] LABS: WBC 6.5 10x3/uL (4.8-10.8)
[2020-03-28 09:03] LABS: CARBON DIOXIDE 44.6 mmol/L (21.0-32.0)
[2020-03-28 09:11] VITALS: BP 124/74
[2020-03-28 12:25] VITALS: BP 110/60
--- NOTE | 2020-03-28 12:32 | NUR ---
0700 ASLEEP IN BARIATRIC BED WEARING BPAP AT 40% 02 SPOUSE AT BEDSIDE
--- NOTE | 2020-03-28 12:33 | NUR ---
1000 AMBULATING IN [place] WITH PT TO ASSIST
--- NOTE | 2020-03-28 12:34 | NUR ---
1200 EDUCATION ON HOME CPAP USE PROVIDED, STRESSING THE IMPORTANCE OF COMPLIANCE
[2020-03-28 16:04] VITALS: BP 104/46
--- NOTE | 2020-03-28 16:53 | NUR ---
OT NOTE: PT COMPLETED SIT TO STAND WITH CGA. PT COMPLETED ADL MOB WITH RW WIT CGA/SBA. PT COMPLETED UE AROM WITH FUNCTIONAL TASKS. PT IS MUCH IMPROVED WITH I FUNCTIONAL ACTIVITIES. 1-139 THANK YOU,CINDY VERDUZCO
[2020-03-28 20:00] VITALS: BP 90/40
--- NOTE | 2020-03-28 20:00 | NUR ---
A&O X 4. SUPINE IN BED. PT HOPING TO GO HOME, INFORMED PT THAT LOCOMOTIVE PIPE FITTER HAS NOT ROUNDED YET AND HE WOULD HAVE TO BE BLADDER-TRAINED AND VOID PRIOR TO DISCHARGE, THAT IT IS MORE LIKELY TO BE IN THE AM. PT VERBALIZED UNDERSTANDING, BP LOW, HOLDING NIGHTLY BP MED, PT AND S/O VERBALIZED UNDERSTANDING, CTM.
[2020-03-29] VITALS: BP 101/43
[2020-03-29 04:00] VITALS: BP 101/43
[2020-03-29 07:49] LABS: BASOPHILS 0.5 % (0-2); EOSINOPHILS 4.2 % (0-7); HEMATOCRIT 42.7 % (42.0-54.0); HEMOGLOBIN 12.1 g/dL (13.5-17.5); IMMATURE GRANULOCYTES 0.6 % (0-5); LYMPHOCYTES 15.6 % (15-50); MCH 29.6 pg (26.0-34.0); MCHC 28.3 g/dL (31.0-37.0); MCV 104.4 fL (80.0-100.0); MEAN PLATELET VOLUME 10.1 fL (7.4-10.4); MONOCYTES 11.4 % (2-11); NEUTROPHILS 67.7 % (40-80); PLATELET COUNT 261 10x3/uL (130-400); RBC 4.09 10x6/uL (4.20-6.10); RDW 18.9 % (11.5-14.5); WBC 6.4 10x3/uL (4.8-10.8)
[2020-03-29 07:58] LABS: CALC OSMOLALITY 275 mosm/kg (275-300); CALCIUM 8.5 mg/dL (8.5-10.1); CARBON DIOXIDE 37.5 mmol/L (21.0-32.0); CHLORIDE - SERUM 97 mmol/L (98-107); CREATININE - SERUM 0.9 mg/dL (0.6-1.3); GLUCOSE 93 mg/dL (74-106); POTASSIUM - SERUM 3.7 mmol/L (3.5-5.1); SODIUM 138 mmol/L (136-145); UREA NITROGEN 13 mg/dL (7-18); eGFR NON AFRICAN AMERICAN > 90 mL/min (90-120)
[2020-03-29 08:36] VITALS: BP 103/50
--- NOTE | 2020-03-29 12:16 | MORECARE ---
CASE MANAGEMENT DISCHARGE SUMMARY PATIENT: VALNECIA BENNETT UNIT: [id number] ADM DATE: 03/19/20 AGE: 39 : 84 SEX: M ROOM/BED: D.2204 AUTHOR: JHONY MARK PHYSICIAN: REFERRING PHYSICIAN: EMILY ANDREW MD DATE OF SERVICE: 03/29/20 Discharge Plan Patient Name: VALENCIA BENNETT Facility: [facility]:[place] : 1980 Planned Disposition: Home Anticipated Discharge Date: Discharge Date: Expected LOS: Initial Reviewer: [email or web address] Initial Review Date: 03/19/2020 Generated: 03/29/20 1:16 pm Comments DCP- Discharge Planning Updated by [email or web address]: Nory Ellis on 03/29/20 11:[address] PATIENT IS DISHCARGING HOME TODAY WITH HIS . HE HAS PORTABLE O2 AT BEDSIDE FROM [facility]. [facility] HAS ALSO ORDERED HIM A WALKER THAT WILL BE DELIVERED TO HIS HOME. THEY DID NOT WANT HOME HEALTH, DECLINATION SIGNED. IMM SERVED AND EXPLAINED. CM TILL CONTINUE TO FOLLOW AND ASSIST NEEDED DCP- Discharge Planning Updated by [email or web address]: Nory Ellis on 03/28/20 5:[address] late entry 03/25/20 O2 was delivered to bedside on Saturday03/25/20 he qualified for O2. DCP- Discharge Planning Updated by [id number]: Nory Ellis on 03/25/20 1:[address] At this time patient needs O2. I have faxed the paperwork over to [facility] for O2 DCP- Discharge Planning Updated by [email or web address]: Nory Ellis on 03/25/20 11:[address] DISCHARGE IS ON HOLD TILL THE PATIENT SPEAKS WITH DR HOWARD DCP- Discharge Planning Updated by [email or web address]: Nory Ellis on 03/24/20 10:[address] Patient Name: VALENCIA BENNETT Admission Status: ER Accout number: [id number] Admission Date: 03-19-2020 : 1980 Admission Diagnosis:FLUID OVERLOAD, UNSPECIFIED Attending: EMILY ANDREW Current LOS: 5 Anticipated DC Date: Planned Disposition: Home Primary Insurance: MEDICARE A & B Discharge Planning Comments: CM met with patient to complete initial dc planning assessment. CM educated patient on the CM role and verbal consent given by patient to complete assessment. Patient lives at home with his where he is moderately independent. He states that he needs help getting up then he is good to go. His is at his bedside. He see a Dr in [place] and he has ordered him a wheelchair through [facility] and per the patient it should be delivered soon. At discharge patient plans to return home and feels this is a safe discharge. He knows that he needs therapy and is asking about water therapy. He states his feet is killing him and the pain is a lot. He has agoraphobia so he is scared about being around crowds ( like an inpatient rehab) CM discussed availability of home health, rehab services, and medical equipment. He has a cane, but it is not helpful. His said he did much better with the walker. IMM signed and went over. DMITRIY also signed for HH vs OP water therapy. Patient denied known discharge needs at this time. CM will continue to follow and will assist as needed with dc plans/needs. Him Clerk: Nory Ellis DCPIA - Discharge Planning Initial Assessment Updated by [email or web address]: Nory Ellis on 03/24/20 11:47 am * Is the patient Alert and Oriented? Yes * How many steps to enter\exit or inside your home? stairs * PCP DR SHIN IN [facility] WOULD LIKE TO USE [facility] * Pharmacy [address] * Preadmission Environment Home with Family * ADLs Partial Dependent * Partial ADLs (Assistance needed) Ambulation Bathing * Equipment Cane * Other Equipment WHEELCHAIR HAS BEEN ORDERED * List name and contact numbers for known caregivers / representatives who currently or will assist patient after discharge: SIGIFREDO BENNETT [phone] * Verbal permission to speak to the caregivers and representatives has been obtained from the patient. Yes * Community resources currently utilized None * Additional services required to return to the preadmission environment? Yes * Can the patient safely return to the preadmission environment? Yes * Has this patient been hospitalized within the prior 30 days at any hospital? No Coverage Notice Reviewer: [id number] - Nory Ellis Notice Issued Date-Time: 03/24/2020 10:35 Notice Type: IM Discharge Notice Notice Delivered To: Patient Relationship to Patient: Structural Analysis Engineer Name: Delivery Method: HAND - Hand Delivered Samaria Days: Prior Verbal Notification: Recipient Understood Notice: Yes Recipient Signature: Yes Med Rec Note Co-signed by Attending: Coverage Notice Comment: Reviewer: NASRIN Ellis Notice Issued Date-Time: 03/24/2020 10:35 Notice Type: Patient Choice Letter Notice Delivered To: Patient Relationship to Patient: Structural Analysis Engineer Name: Delivery Method: HAND - Hand Delivered Samaria Days: Prior Verbal Notification: Recipient Understood Notice: Yes Recipient Signature: Yes Med Rec Note Co-signed by Attending: Coverage Notice Comment: dmitriy chen vs water therapy Reviewer: NASRIN Ellis Notice Issued Date-Time: 03/29/2020 12:08 Notice Type: IM Discharge Notice Notice Delivered To: Family Member Relationship to Patient: Spouse Structural Analysis Engineer Name: SIGIFREDO Delivery Method: HAND - Hand Delivered Samaria Days: Prior Verbal Notification: Recipient Understood Notice: Yes Recipient Signature: Yes Med Rec Note Co-signed by Attending: Coverage Notice Comment: IMM SERVED AND EXPLAINED Reviewer: NASRIN Ellis Notice Issued Date-Time: 03/29/2020 12:08 Notice Type: Patient Choice Letter Notice Delivered To: Family Member Relationship to Patient: Spouse Structural Analysis Engineer Name: SIGIFREDO Delivery Method: HAND - Hand Delivered Samaria Days: Prior Verbal Notification: Recipient Understood Notice: Yes Recipient Signature: Yes Med Rec Note Co-signed by Attending: Coverage Notice Comment: DMITRIY Goldstein DP export: 03/28/20 5:46 a Patient Name: VALENCIA BENNETT Page [phone] at 1216 All edits/amendments must be made on the electronic document DICTATION DATE: 03/29/20 1216 IRRIGATION WORKER: CHRIS 03/29/20 1216 RPT#: [id number] DC DATE: STATUS: ADM IN [facility] [address] [place] [address] END OF REPORT
[2020-03-29 12:39] VITALS: BP 111/65
--- NOTE | 2020-03-29 13:05 | NUR ---
0700 ASLEEP IN BARIATRIC BED REMAINS AT BEDSIDE AWAKENS TO VOICE
--- NOTE | 2020-03-29 13:06 | NUR ---
1030 DISCHARGE ORDERS NOTED D/C SANDOVAL DTV
--- NOTE | 2020-03-29 15:01 | NUR ---
1100 D/C TELE NOTIFIED ENVIRONMENTAL RESEARCH SCIENTIST ASSISTED PT TO SHOWER SALINE LOCK DC
--- NOTE | 2020-03-29 15:01 | NUR ---
1045 VOIDED 600
--- NOTE | 2020-03-29 15:02 | NUR ---
RT PERFORMED WALKING TRIAL
--- NOTE | 2020-03-29 15:03 | NUR ---
1300 WRITTEN AND VERBAL DC INSTRUCTIONS PROVIDED PT AND SPOUSE BOTH VERBALIZED UNDERSTANDING TAKEN TO CAR VIA WHEELCHAIR WITHOUUT INCIDENCE.
--- NOTE | 2020-03-29 15:05 | NUR ---
PT HAD PORTABLE O2 TANK WITH HIM FOR HOME USE
--- NOTE | 2020-03-30 14:50 | MORECARE ---
CASE MANAGEMENT DISCHARGE SUMMARY PATIENT: VALENCIA BENNETT UNIT: [id number] ADM DATE: 03/19/20 AGE: 39 : 84 SEX: M ROOM/BED: D.2204 AUTHOR: DEEDEEDOC PHYSICIAN: REFERRING PHYSICIAN: EMILY ANDREW MD DATE OF SERVICE: 03/30/20 Discharge Plan Patient Name: VALENCIA BENNETT Facility: [facility]:[place] : 1980 Planned Disposition: Home Anticipated Discharge Date: Discharge Date: 03/29/2020 Expected LOS: 0 Initial Reviewer: [id number] Initial Review Date: 03/19/2020 Generated: 03/30/20 3:49 pm Comments DCP- Discharge Planning Updated by [id number]: Nory Ellis on 03/29/20 11:[address] PATIENT IS DISHCARGING HOME TODAY WITH HIS . HE HAS PORTABLE O2 AT BEDSIDE FROM [facility]. [facility] HAS ALSO ORDERED HIM A WALKER THAT WILL BE DELIVERED TO HIS HOME. THEY DID NOT WANT HOME HEALTH, DECLINATION SIGNED. IMM SERVED AND EXPLAINED. TILL CONTINUE TO FOLLOW AND ASSIST NEEDED DCP- Discharge Planning Updated by [id number]: Nory Ellis on 03/28/20 5:[address] late entry 03/25/20 O2 was delivered to bedside on Saturday03/25/20 he qualified for O2. DCP- Discharge Planning Updated by [id number]: Nory Ellis on 03/25/20 1:[address] At this time patient needs O2. I have faxed the paperwork over to [facility] for O2 DCP- Discharge Planning Updated by [email or web address]: Nory Ellis on 03/25/20 11:[address] DISCHARGE IS ON HOLD TILL THE PATIENT SPEAKS WITH DR HOWARD DCP- Discharge Planning Updated by [email or web address]: Nory Ellis on 03/24/20 10:[address] Patient Name: VALENCIA BENNETT Admission Status: ER Accout number: [id number] Admission Date: 03-19-2020 : 1980 Admission Diagnosis:FLUID OVERLOAD, UNSPECIFIED Attending: EMILY ANDREW Current LOS: 5 Anticipated DC Date: Planned Disposition: Home Primary Insurance: MEDICARE A & B Discharge Planning Comments: CM met with patient to complete initial dc planning assessment. CM educated patient on the CM role and verbal consent given by patient to complete assessment. Patient lives at home with his where he is moderately independent. He states that he needs help getting up then he is good to go. His is at his bedside. He see a Dr in [place] and he has ordered him a wheelchair through [facility] and per the patient it should be delivered soon. At discharge patient plans to return home and feels this is a safe discharge. He knows that he needs therapy and is asking about water therapy. He states his feet is killing him and the pain is a lot. He has agoraphobia so he is scared about being around crowds ( like an inpatient rehab) CM discussed availability of home health, rehab services, and medical equipment. He has a cane, but it is not helpful. His said he did much better with the walker. IMM signed and went over. DMITRIY also signed for HH vs OP water therapy. Patient denied known discharge needs at this time. CM will continue to follow and will assist as needed with dc plans/needs. Quality Control Director: Nory Ellis DCPIA - Discharge Planning Initial Assessment Updated by [email or web address]: Noyr Ellis on 03/24/20 11:47 am * Is the patient Alert and Oriented? Yes * How many steps to enter\exit or inside your home? stairs * PCP [facility] SHIN IN [facility] WOULD LIKE TO USE [facility] * Pharmacy [address] * Preadmission Environment Home with Family * ADLs Partial Dependent * Partial ADLs (Assistance needed) Ambulation Bathing * Equipment Cane * Other Equipment WHEELCHAIR HAS BEEN ORDERED * List name and contact numbers for known caregivers / representatives who currently or will assist patient after discharge: SIGIFREDO BENNETT [phone] * Verbal permission to speak to the caregivers and representatives has been obtained from the patient. Yes * Community resources currently utilized None * Additional services required to return to the preadmission environment? Yes * Can the patient safely return to the preadmission environment? Yes * Has this patient been hospitalized within the prior 30 days at any hospital? No Coverage Notice Reviewer: [id number] - Nory Ellis Notice Issued Date-Time: 03/24/2020 10:35 Notice Type: IM Discharge Notice Notice Delivered To: Patient Relationship to Patient: Hydrate Thickener Operator Name: Delivery Method: HAND - Hand Delivered Samaria Days: Prior Verbal Notification: Recipient Understood Notice: Yes Recipient Signature: Yes Med Rec Note Co-signed by Attending: Coverage Notice Comment: Reviewer: NASRIN Ellis Notice Issued Date-Time: 03/24/2020 10:35 Notice Type: Patient Choice Letter Notice Delivered To: Patient Relationship to Patient: Hydrate Thickener Operator Name: Delivery Method: HAND - Hand Delivered Samaria Days: Prior Verbal Notification: Recipient Understood Notice: Yes Recipient Signature: Yes Med Rec Note Co-signed by Attending: Coverage Notice Comment: dmitriy chen vs water therapy Reviewer: NASRIN Ellis Notice Issued Date-Time: 03/29/2020 12:08 Notice Type: IM Discharge Notice Notice Delivered To: Family Member Relationship to Patient: Spouse Hydrate Thickener Operator Name: SIGIFREDO Delivery Method: HAND - Hand Delivered Samaria Days: Prior Verbal Notification: Recipient Understood Notice: Yes Recipient Signature: Yes Med Rec Note Co-signed by Attending: Coverage Notice Comment: IMM SERVED AND EXPLAINED Reviewer: NASRIN Ellis Notice Issued Date-Time: 03/29/2020 12:08 Notice Type: Patient Choice Letter Notice Delivered To: Family Member Relationship to Patient: Spouse Hydrate Thickener Operator Name: SIGIFREDO Delivery Method: HAND - Hand Delivered Samaria Days: Prior Verbal Notification: Recipient Understood Notice: Yes Recipient Signature: Yes Med Rec Note Co-signed by Attending: Coverage Notice Comment: DMITRIY Goldstein DP export: 03/29/20 11:16 a Patient Name: VALENCIA BENNETT Page [phone] at 1450 All edits/amendments must be made on the electronic document DICTATION DATE: 03/30/20 1449 GRAIN MERCHANDISING MANAGER: CHRIS 03/30/20 1449 RPT#: [id number] DC DATE:03/29/20 STATUS: DIS IN [facility] [address] [place] [address] END OF REPORT
== END 2020-03-29 15:06 | disposition home or self-care (01) | DRG 640 ==
LOC: D.ER 20:24 → D.MS 03-19 00:37
PROVIDERS: Emergency Medicine; Family Medicine; ADMIT Legal Medicine; ATTEND Legal Medicine
DX: E87.70 Fluid overload, unspecified (principal); J96.22 Acute and chronic respiratory failure with hypercapnia; Z68.43 Body mass index [BMI] 50.0-59.9, adult; E66.2 Morbid (severe) obesity with alveolar hypoventilation; R60.0 Localized edema; D72.829 Elevated white blood cell count, unspecified; G62.9 Polyneuropathy, unspecified; G47.33 Obstructive sleep apnea (adult) (pediatric); G89.29 Other chronic pain; I10 Essential (primary) hypertension

== ENCOUNTER 2020-04-20 12:38 | Emergency (ER) | payer MEDICARE ==
[~2020-04-20] VITALS: Ht 200.7 cm; Wt 250.0 kg
[~2020-04-20 12:38] MED LIST: HYDROCODON-ACE1 EA10 PO; LASIX40 MG PO; METOPROLOL TART50 MG PO; NEURONTIN 300300 MG PO; XANAX XR2 MG PO
[2020-04-20 12:47] VITALS: BP 133/78; Ht 200.7 cm; Wt 250.0 kg
== END 2020-04-20 15:11 | disposition left against medical advice (07) ==
LOC: D.ER 12:38
DX: R22.43 Localized swelling, mass and lump, lower limb, bilateral (principal)